=== PATIENT | female | born 1955 | race Caucasian/White ===

== ENCOUNTER 2017-12-04 16:01 | Outpatient (CLI) | payer BC | END 2017-12-04 16:02 | disposition home or self-care (01) | LOC: BICMAMMO 16:01 | PROVIDERS: ATTEND Internal Medicine Hematology & Oncology | DX: Z12.31 Encounter for screening mammogram for malignant neoplasm of breast (principal); Z85.3 Personal history of malignant neoplasm of breast | CPT/HCPCS: 77063; 77067 ==

== ENCOUNTER 2018-03-12 15:17 | Outpatient (CLI) | payer BC | END 2018-03-12 15:18 | disposition home or self-care (01) | LOC: BICMAMMO 15:17 | PROVIDERS: ATTEND Obstetrics & Gynecology | DX: Z13.820 Encounter for screening for osteoporosis (principal); M85.88 Other specified disorders of bone density and structure, other site; M85.852 Other specified disorders of bone density and structure, left thigh | CPT/HCPCS: 77080 ==

== ENCOUNTER 2018-12-10 15:33 | Outpatient (CLI) | payer BC | END 2018-12-10 15:34 | disposition home or self-care (01) | LOC: BICMAMMO 15:33 | PROVIDERS: ATTEND Internal Medicine Hematology & Oncology | DX: Z12.31 Encounter for screening mammogram for malignant neoplasm of breast (principal); Z85.3 Personal history of malignant neoplasm of breast; Z80.3 Family history of malignant neoplasm of breast | CPT/HCPCS: 77063; 77067 ==

== ENCOUNTER 2018-12-13 21:31 | Emergency (ER) | payer BC ==
[2018-12-13] MEDS ORDERED: HYDROcodone/Acetaminophen 10/325 mg Tablet ONE (23:48)
== END 2018-12-13 23:51 | disposition home or self-care (01) ==
LOC: ERS 21:31
DX: M25.572 Pain in left ankle and joints of left foot (principal); M25.571 Pain in right ankle and joints of right foot; Z79.899 Other long term (current) drug therapy
CPT/HCPCS: 99283

== ENCOUNTER 2019-06-11 09:18 | Outpatient (CLI) | payer BC ==
--- NOTE | 2019-06-11 10:06 | RAD ---
TWO VIEW CHEST: INDICATION: Disorders of bone given as reason for exam. The technologist states the patient noticed knot upper a nterior left chest. History of breast cancer. COMPARISON: Two view chest of 05/24/2007. FINDINGS: The lung skaggs remain clear. No infiltrate or vascular congestion. Some mild apical pleural thicke joseline. Heart and mediastinum unremarkable. The visualized osseous structures appear unremarkable. IMPRESSION: No acute finding. POS: [facility]
== END 2019-06-11 09:19 | disposition home or self-care (01) ==
LOC: BICRAD 09:18
PROVIDERS: ATTEND Family Medicine
DX: M89.9 Disorder of bone, unspecified (principal)
CPT/HCPCS: 71046

== ENCOUNTER 2019-12-24 15:11 | Outpatient (CLI) | payer BC ==
--- NOTE | 2019-12-24 15:47 | MMO ---
Bilateral MAMMO Bilat Screen [facility]. CLINICAL HISTORY: Patient is 64 years old and is seen for screening. The patient has the following family history of breast cancer: cousin female, at age 45, malignant (generic). The patient has a history of invasive lobular left breast carcinoma in April,; Excisional biopsy procedure revealed invasive lobular left breast carcinoma in April, and malignant (generic) in the left breast in 2006. The patient has a history of left Excisional Biopsy in April, - malignant and left Lumpectomy in April, - malignant. VIEWS: The views performed were: bilateral craniocaudal with tomosynthesis and bilateral mediolateral oblique with tomosynthesis. FILMS COMPARED: The present examination has been compared to prior imaging studies performed at [facility] on 11/24/2015, 11/29/2016, 12/04/2017 and 12/10/2018. This study has been interpreted with the assistance of computer-aided detection. MAMMOGRAM FINDINGS: There are scattered fibroglandular densities. Finding 1: There are stable post operative changes seen in the left breast. Finding 2: There are stable benign appearing calcifications seen in both breasts. There are also vascular calcifications. There are no suspicious masses, suspicious calcifications, or new areas of architectural distortion. IMPRESSION: THERE IS NO MAMMOGRAPHIC EVIDENCE OF MALIGNANCY. A ROUTINE FOLLOW-UP MAMMOGRAM IN 1 YEAR IS RECOMMENDED. THE RESULTS OF THIS EXAM WERE SENT TO THE PATIENT. ACR BI-RADS Category 2 - Benign finding MAMMOGRAPHY NOTE: 1. A negative mammogram report should not delay a biopsy if a dominant of clinically suspicious mass is present. 2. Approximately 10% to 15% of breast cancers are not detected by mammography. 3. Adenosis and dense breasts may obscure an underlying neoplasm. Reported by: ANJANA JOSEPH MD Electonically Signed: [id number]
== END 2019-12-24 15:12 | disposition home or self-care (01) ==
LOC: BICMAMMO 15:11
PROVIDERS: ATTEND Internal Medicine Hematology & Oncology
DX: Z12.31 Encounter for screening mammogram for malignant neoplasm of breast (principal); Z80.3 Family history of malignant neoplasm of breast; Z85.3 Personal history of malignant neoplasm of breast; Z91.89 Other specified personal risk factors, not elsewhere classified
CPT/HCPCS: 77063; 77067

== ENCOUNTER 2020-01-07 14:55 | Outpatient (CLI) | payer BC ==
--- NOTE | 2020-01-07 15:46 | RAD ---
Exam:Right foot 4 views HISTORY: Pain. Fifth metatarsal pain. COMPARISON: None FINDINGS: Lisfranc alignment is maintained. Mild degenerative change of first metatarsal phalangeal j oint space. Otherwise, joint spaces are preserved. No fracture, cortical irregularity or periosteal reaction. No significant soft tissue swelling. IMPRESSION: Unremarkable 3 views right foot. No abnormality in the fifth metatarsal.
--- NOTE | 2020-01-07 15:46 | RAD ---
4 views right knee: 01/07/2020 COMPARISON: None HISTORY: Right knee pain FINDINGS: No fracture or dislocation. No radiopaque foreign body or subcutaneous gas. No knee joint e ffusion. IMPRESSION: No acute findings.
--- NOTE | 2020-01-07 15:47 | RAD ---
2 views right hip: 01/07/2020 COMPARISON: None HISTORY: Right-sided hip pain FINDINGS: No acute fracture or evidence of dislocation. Mild superior joint space narrowing. 4 mm calcific density adjacent to the acetabulum the right may signify an accessory ossicle or the se quela of degenerative change. IMPRESSION: No acute fracture or dislocation.
--- NOTE | 2020-01-07 15:52 | BD ---
BONE DENSITOMETRY USING DEXA: Date: 01/07/2020 HISTORY: Postmenopausal screening for osteoporosis. FINDINGS: Lumbar Spine: BMD (g/cm2) L1 0.704 T-Score: -2.6 Z-Score: -1.2 L2 0.749 T-Score: -2.5 Z-Score: -0.9 L3 0.887 T-Score: -1.8 Z-Score: -0.1 L4 0.957 T-Score: -0.9 Z-Score: 0.8 L1-L4 0.836 T-Score: -1.9 Z-Score: -0.3 Femoral Neck: 0.624 T-Score: -2.0 Z-Score: -0.6 Total Femur: 0.848 T-Score: -0.8 Z-Score: 0.3 The 10 year fracture risk for a major osteoporotic fracture is 9.3% and for a hip fracture is 1.3%. IMPRESSION: Osteopenia. POS: [facility]
== END 2020-01-07 14:56 | disposition home or self-care (01) ==
LOC: BICMAMMO 14:55
PROVIDERS: ATTEND Physician Assistant Medical
DX: Z13.820 Encounter for screening for osteoporosis (principal); M79.671 Pain in right foot; M25.561 Pain in right knee; M25.551 Pain in right hip; M85.89 Other specified disorders of bone density and structure, multiple sites
CPT/HCPCS: 77080

== ENCOUNTER 2021-01-13 15:52 | Outpatient (CLI) | payer BC | END 2021-01-13 15:53 | disposition home or self-care (01) | LOC: BICMAMMO 15:52 | PROVIDERS: ATTEND Internal Medicine Hematology & Oncology | DX: Z12.31 Encounter for screening mammogram for malignant neoplasm of breast (principal); Z80.3 Family history of malignant neoplasm of breast; Z85.3 Personal history of malignant neoplasm of breast; Z98.890 Other specified postprocedural states | CPT/HCPCS: 77063; 77067 ==

== ENCOUNTER 2023-02-28 16:20 | Outpatient (CLI) | payer BC | END 2023-02-28 16:21 | disposition home or self-care (01) | LOC: BICRAD 16:20 | PROVIDERS: ATTEND Internal Medicine Gastroenterology | DX: R79.89 Other specified abnormal findings of blood chemistry (principal); R19.7 Diarrhea, unspecified; K59.00 Constipation, unspecified; N28.89 Other specified disorders of kidney and ureter | CPT/HCPCS: 74018 ==

== ENCOUNTER 2023-03-08 15:13 | Outpatient (CLI) | payer BC | END 2023-03-08 15:14 | disposition home or self-care (01) | LOC: BICMAMMO 15:13 | PROVIDERS: ATTEND Internal Medicine Hematology & Oncology | DX: Z12.31 Encounter for screening mammogram for malignant neoplasm of breast (principal); Z80.3 Family history of malignant neoplasm of breast; Z85.3 Personal history of malignant neoplasm of breast; Z98.890 Other specified postprocedural states | CPT/HCPCS: 77063; 77067 ==

== ENCOUNTER 2023-08-23 16:04 | Outpatient (CLI) | payer BC | END 2023-08-23 16:05 | disposition home or self-care (01) | LOC: BICMAMMO 16:04 | PROVIDERS: ATTEND Internal Medicine Hematology & Oncology | DX: Z13.820 Encounter for screening for osteoporosis (principal); M85.89 Other specified disorders of bone density and structure, multiple sites; Z85.3 Personal history of malignant neoplasm of breast | CPT/HCPCS: 77080 ==

== ENCOUNTER 2024-02-25 09:02 | Outpatient (CLI) | payer MEDICARE ==
[2024-02-25] MEDS ORDERED: Iopamidol 370 76% 100 ML VIAL ONE (13:13)
== END 2024-02-25 09:03 | disposition home or self-care (01) ==
LOC: CT 09:02
PROVIDERS: ATTEND Internal Medicine Hematology & Oncology
DX: C50.919 Malignant neoplasm of unspecified site of unspecified female breast (principal); R51.9 Headache, unspecified
CPT/HCPCS: 70470; 82565; Q9967

== ENCOUNTER 2024-03-10 11:45 | Outpatient (CLI) | payer MEDICARE | END 2024-03-10 11:46 | disposition home or self-care (01) | LOC: BICMAMMO 11:45 | PROVIDERS: ATTEND Internal Medicine Hematology & Oncology | DX: Z12.31 Encounter for screening mammogram for malignant neoplasm of breast (principal); Z85.3 Personal history of malignant neoplasm of breast; Z80.3 Family history of malignant neoplasm of breast; Z98.890 Other specified postprocedural states | CPT/HCPCS: 77063; 77067 ==

== ENCOUNTER 2025-07-14 15:16 | Outpatient (CLI) | payer MEDICARE, OTHER | END 2025-07-14 15:17 | disposition home or self-care (01) | LOC: BICRAD 15:16 | PROVIDERS: ATTEND Internal Medicine | DX: M25.551 Pain in right hip (principal); M25.552 Pain in left hip ==